=== PATIENT | female | born 1995 | race Caucasian/White ===

== ENCOUNTER 2018-09-27 16:03 | Emergency (ER) | payer OTHER, SELFPAY ==
[2018-09-27 16:54] LABS: Basophils % 1.2 % (0-1.3); Hematocrit 41.3 % (36.0-45.0); Lymphocytes % 24.4 % (15.3-44.8); MPV 8.5 fL (7.6-11.3); RBC Red Blood Cell Count 4.23 M/uL (3.86-4.86)
[2018-09-27 17:11] LABS: Specific Gravity 1.015 (1.005-1.030)
[2018-09-27 17:13] LABS: Albumin 4.2 g/dL (3.4-5.0); Bilirubin Direct 0.3 mg/dL (0-0.2); Potassium 3.7 mmol/L (3.5-5.1); Protein, Total 8.2 g/dL (6.4-8.2)
[2018-09-27 17:35] LABS: Urine Blood 2+ (NEG); Urine Glucose NEGATIVE (NEG); Urine Protein NEGATIVE (NEG)
--- NOTE | 2018-09-27 18:16 | RAD REPORT ---
EXAM DESCRIPTION: RAD - Abdomen Single View - 09/27/2018 6:07 pm CLINICAL HISTORY: lower abdomen pain Pain COMPARISON: <Comparisons> FINDINGS: The bowel gas pattern is non-obstructive. No evidence of free air or pneumatosis. No suspi cious calcifications. No significant bony findings. IMPRESSION: Negative examination.
--- NOTE | 2018-09-27 19:05 | RAD REPORT ---
EXAM DESCRIPTION: US - Transvaginal Study Probe - 09/27/2018 6:55 pm CLINICAL HISTORY: lower abdomen pain Pelvic pain. COMPARISON: <Comparisons> FINDINGS: The uterus is normal in size, shape and echotexture. The uterus measures 6.3 x 4.1 x 3.6 c m. The endometrial stripe measures 2 mm, normal. Both ovaries are normal in size, shape and echotexture. The right ovary measures 4.1 x 2.9 x 2.1 cm. The left ovary measures 1.8 x 1.7 x 1.4 cm. 3.4 x 2.7 x 1.9 cm right ovarian cyst is present. Normal Doppler blood flow was demonstrated to both ovaries. No significant pelvic ascites. IMPRESSION: 3.4 cm right ovarian cyst is present, likely functional in etiology.
--- NOTE | 2018-09-27 19:09 | EDPHYS ---
Physician Documentation [facility] Name: Fely Monge Age: 23 yrs Sex: Female : 1995 Arrival Date: 09/27/2018 Time: 16:09 Bed 14 Private MD: ED Physician Lexx Loving HPI: 09/27 16:30 This 23 yrs old Female presents to ER via Ambulatory with complaints of cp Abdominal Pain. 16:30 The patient presents with abdominal pain in the lower abdomen. Onset: The cp symptoms/episode began/occurred this morning, awoke patient from sleep. The symptoms do not radiate. Associated signs and symptoms: Pertinent positives: diarrhea, vaginal bleeding and now spotting times 1 and 1/2 weeks. The symptoms are described as crampy. 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 - Social history:: Smoking status: Patient/guardian denies using tobacco. - Ebola Screening: : Patient negative for fever greater than or equal to 101.5 degrees Fahrenheit, and additional compatible Ebola Virus Disease symptoms Patient denies exposure to infectious person Patient denies travel to an Ebola-affected area in the 21 days before illness onset No symptoms or risks identified at this time. ROS: 16:35 Constitutional: Negative for body aches, chills, fever, poor PO intake. cp 16:35 Eyes: Negative for injury, pain, redness, and discharge. cp 16:35 ENT: Negative for drainage from ear(s), ear pain, sore throat, difficulty swallowing, difficulty handling secretions. 16:35 Respiratory: Negative for cough, shortness of breath, wheezing. 16:35 Abdomen/GI: Positive for abdominal pain, diarrhea, of the right lower quadrant and left lower quadrant, Negative for vomiting, constipation, black/tarry stool, rectal bleeding. 16:35 : Positive for vaginal bleeding, Negative for urinary symptoms. 16:35 Skin: Negative for cellulitis, rash. 16:35 Neuro: Negative for altered mental status, dizziness, headache, weakness. 16:35 All other systems are negative. Exam: 16:40 Constitutional: The patient appears in no acute distress, alert, awake, non-toxic, well cp developed, well nourished. 16:40 Head/Face: Normocephalic, atraumatic. cp 16:40 Eyes: Periorbital structures: appear normal, Conjunctiva: normal, no exudate, no injection, Sclera: no appreciated abnormality, Lids and lashes: appear normal, bilaterally. 16:40 ENT: External ear(s): are unremarkable, Nose: is normal, Mouth: Lips: moist, Oral mucosa: pink and intact, moist, Posterior pharynx: is normal, airway is patent, no erythema, no exudate. 16:40 Chest/axilla: Inspection: normal, Palpation: is normal, no crepitus, no tenderness. 16:40 Cardiovascular: Rate: normal, Rhythm: regular, JVD: is not appreciated. 16:40 Respiratory: the patient does not display signs of respiratory distress, Respirations: normal, no use of accessory muscles, no retractions, no splinting, labored breathing, is not present, Breath sounds: are clear throughout, no decreased breath sounds, rhonchi, no stridor, no wheezing. 16:40 Abdomen/GI: Inspection: abdomen appears normal, Bowel sounds: active, all quadrants, Palpation: soft, in all quadrants, mild abdominal tenderness, in the right lower quadrant and left lower quadrant, rebound tenderness, is not appreciated, involuntary guarding, is not appreciated. 16:40 Back: pain, is absent, ROM is normal. 19:07 : Pelvic Exam: The exam is refused by the patient/guardian. The risks and cp consequences are understood by the patient. Vital Signs: 16:12 BP 143 / 79; Pulse 94; Resp 16; Temp 98.5; Pulse Ox 100% on R/A; Weight 49.9 kg; Height aj 5 ft. 3 in. (160.02 cm); 19:22 BP 113 / 86; Pulse 80; Resp 16; Pulse Ox 100% on R/A; jb4 16:12 Body Mass Index 19.49 (49.90 kg, 160.02 cm) aj MDM: 16:14 Patient medically screened. cp 17:00 Differential diagnosis: Ectopic , gastritis, gastroesophageal reflux disease, cp non-specific abd pain, Ovarian Torsion, Pelvic Inflammatory Disease, Pyelonephritis, Ureterolithiasis, urinary tract infection. 19:07 Data reviewed: vital signs, nurses notes, lab test result(s), radiologic studies, plain cp films, ultrasound, and as a result, I will discharge patient. 19:07 Counseling: I had a detailed discussion with the patient and/or guardian regarding: the cp historical points, exam findings, and any diagnostic results supporting the discharge/admit diagnosis, lab results, radiology results, to return to the emergency department if symptoms worsen or persist or if there are any questions or concerns that arise at home. Response to treatment: the patient's symptoms have markedly improved after treatment, and as a result, I will discharge patient. 09/27 16:29 Order name: Basic Metabolic Panel; Complete Time: 17:36 cp 09/27 17:38 Interpretation: Normal except: CL 109; GFR 88. 09/27 16:29 Order name: CBC with Diff; Complete Time: 17:36 cp 09/27 17:38 Interpretation: Normal except: WBC 4.0; EOSINOPHIL % 8.3. cp 09/27 16:29 Order name: Creatinine for Radiology; Complete Time: 17:36 cp 09/27 16:29 Order name: Hepatic Function; Complete Time: 17:36 cp 09/27 17:38 Interpretation: Normal except: ALK 42; BILID 0.3; GLOB 4.0. cp 09/27 16:29 Order name: Lipase; Complete Time: 17:36 cp 09/27 17:08 Order name: Urine Dipstick--Ancillary (enter results); Complete Time: 17:36 bd 09/27 16:29 Order name: IV Saline Lock; Complete Time: 16:49 cp 09/27 16:29 Order name: Labs collected and sent; Complete Time: 16:49 cp 09/27 16:29 Order name: Urine Dipstick-Ancillary (obtain specimen); Complete Time: 17:06 cp 09/27 16:29 Order name: Urine Test (obtain specimen); Complete Time: 17:06 cp 09/27 17:10 Order name: Test, Urine; Complete Time: 17:36 EDMS 09/27 17:38 Order name: US Transvaginal Study (Probe); Complete Time: 19:20 cp 09/27 17:49 Order name: XRAY Abdomen 1 View; Complete Time: 18:18 cp 09/27 18:20 Interpretation: Report reviewed. cp Administered Medications: No medications were administered Disposition: 09/27/18 19:08 Discharged to Home. Impression: Lower abdominal pain, unspecified, Unspecified ovarian cysts. - Condition is Stable. - Discharge Instructions: Abdominal Pain, Adult, Ovarian Cyst. - Prescriptions for Ibuprofen 800 mg Oral Tablet - take 0.5 tablet by ORAL route every 8 hours As needed take with food; 30 tablet. - Medication Reconciliation Form, Thank You Letter, Antibiotic Education, Prescription Opioid Use form. - Follow up: Private Physician; When: 1 week; Reason: Recheck today's complaints. - Problem is new. - Symptoms have improved. Addendum: 09/29/2018 19:13 Co-signature as Attending Physician, Lexx Loving MD. r n Signatures: Dispatcher [employer] [facility] Candelaria Geronimo RN RN Lexx Pepe MD MD rn Page, Corey, PA PA cp Bryson, James RN RN jb4 Corrections: (The following items were deleted from the chart) 09/27 17:19 17:10 Test, Urine ordered. [facility] 19:23 19:08 09/27/2018 19:08 Discharged to Home. Impression: Lower abdominal pain, jb4 unspecified; Unspecified ovarian cysts. Condition is Stable. Forms are Medication Reconciliation Form, Thank You Letter, Antibiotic Education, Prescription Opioid Use. Follow up: Private Physician; When: 1 week; Reason: Recheck today's complaints. Problem is new. Symptoms have improved. cp
--- NOTE | 2018-09-27 19:09 | ER ---
Nurse's Notes [facility] Name: Fely Monge Age: 23 yrs Sex: Female : 1995 Arrival Date: 09/27/2018 Time: 16:09 Bed 14 Private MD: Diagnosis: Lower abdominal pain, unspecified;Unspecified ovarian cysts Presentation: 09/27 16:11 Presenting complaint: Patient states: Lower abdominal cramping that started this AM and aj has not improved. Denies burning with urination. Transition of care: patient was not received from another setting of care. Onset of symptoms was September 27, 2018. Risk Assessment: Do you want to hurt yourself or someone else? Patient reports no desire to harm self or others. Initial Sepsis Screen: Does the patient meet any 2 criteria? No. Patient's initial sepsis screen is negative. Does the patient have a suspected source of infection? No. Patient's initial sepsis screen is negative. Care prior to arrival: None. 16:11 Method Of Arrival: Ambulatory aj 16:11 Acuity: SHEFALI 3 aj Triage Assessment: 16:12 General: Appears in no apparent distress. comfortable, Behavior is calm, cooperative, aj appropriate for age. Pain: Complains of pain in suprapubic area, right inguinal area and left inguinal area. Neuro: Level of Consciousness is awake, alert, obeys commands, Oriented to person, place, time, situation, Appropriate for age. Respiratory: Airway is patent Trachea midline Respiratory effort is even, unlabored, Respiratory pattern is regular, symmetrical. GI: Reports lower abdominal pain. : Reports cramping, lower quadrant(s). Derm: Skin is intact, is healthy with good turgor, Skin is pink, warm \T\ dry. normal. 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 - Social history:: Smoking status: Patient/guardian denies using tobacco. - Ebola Screening: : Patient negative for fever greater than or equal to 101.5 degrees Fahrenheit, and additional compatible Ebola Virus Disease symptoms Patient denies exposure to infectious person Patient denies travel to an Ebola-affected area in the 21 days before illness onset No symptoms or risks identified at this time. Screenin:57 Abuse screen: Denies threats or abuse. Denies injuries from another. Nutritional sg screening: No deficits noted. Tuberculosis screening: No symptoms or risk factors identified. Never had TB. Fall Risk None identified. Assessment: 16:30 General: Appears in no apparent distress. slender, well groomed, well developed, well sg nourished, Behavior is calm, cooperative, appropriate for age. Pain: Complains of pain in suprapubic area Quality of pain is described as crampy. Neuro: Level of Consciousness is awake, alert, obeys commands. Cardiovascular: Capillary refill is brisk in bilateral fingers Patient's skin is warm and dry. Chest pain is denied. Respiratory: Airway is patent Respiratory effort is even, unlabored, Respiratory pattern is regular, symmetrical. GI: Abdomen is flat, non-distended, Bowel sounds present X 4 quads. Abd is soft and non tender X 4 quads. : No signs and/or symptoms were reported regarding the genitourinary system. EENT: No signs and/or symptoms were reported regarding the EENT system. Derm: Skin is pink, warm \T\ dry. Musculoskeletal: No signs and/or symptoms reported regarding the musculoskeletal system. 19:21 Reassessment: Patient appears in no apparent distress at this time. Patient and/or jb4 family updated on plan of care and expected duration. Pain level reassessed. Patient is alert, oriented x 3, equal unlabored respirations, skin warm/dry/pink. PT discharged home with mother, ambulated out with steady gait, verbalized understanding of d/c and follow up instructions. Vital Signs: 16:12 BP 143 / 79; Pulse 94; Resp 16; Temp 98.5; Pulse Ox 100% on R/A; Weight 49.9 kg; Height aj 5 ft. 3 in. (160.02 cm); 19:22 BP 113 / 86; Pulse 80; Resp 16; Pulse Ox 100% on R/A; jb4 16:12 Body Mass Index 19.49 (49.90 kg, 160.02 cm) ED Course: 16:09 Patient arrived in ED. mr 16:12 Triage completed. aj 16:12 Arm band placed on right wrist. Patient placed in an exam room. aj 16:13 Maxi Roman PA is PHCP. cp 16:14 Lexx Loving MD is Attending Physician. cp 16:26 Maynor Crystal, RN is Primary Nurse. sg 16:40 Initial lab(s) drawn, by me, sent to lab. Inserted saline lock: 22 gauge in right sg antecubital area, using aseptic technique. Blood collected. 18:08 XRAY Abdomen 1 View In Process Unspecified. EDMS 18:54 US Transvaginal Study (Probe) In Process Unspecified. EDMS 19:02 Primary Nurse role handed off by Maynor Crystal RN jb4 19:02 Marquis Guardado, RN is Primary Nurse. jb4 19:22 Patient has correct armband on for positive identification. Bed in low position. Call jb4 light in reach. Side rails up X 1. Pulse ox on. NIBP on. 19:22 No provider procedures requiring assistance completed. IV discontinued, intact, jb4 bleeding controlled, No redness/swelling at site. Administered Medications: No medications were administered Outcome: 19:08 Discharge ordered by MD. cp 19:22 Discharged to home ambulatory, with family. jb4 19:22 Condition: stable 19:22 Discharge instructions given to patient, family, Instructed on discharge instructions, follow up and referral plans. medication usage, Demonstrated understanding of instructions, follow-up care, medications, Prescriptions given X 1. 19:23 Patient left the ED. jb4 Signatures: Dispatcher [employer] [facility] Maynor Crystal, Candelaria Sosa RN, RN RN aj Rivera, Mary mr Page, Corey, PA PA cp Marquis Guardado, RN MARIELLA jbOctaviano
== END 2018-09-27 19:23 | disposition home or self-care (01) ==
LOC: ER 16:03
DX: N83.201 Unspecified ovarian cyst, right side (principal)
CPT/HCPCS: 36415; 74018; 76830; 80048; 80076; 81003; 81025; 83690; 85025; 99284

== ENCOUNTER 2020-04-09 18:00 | Emergency (ER) | payer SELFPAY ==
--- OUTSIDE RECORDS SUMMARY | 2020-04-09 18:02 | XMS REPORT | Continuity of Care Document ---
:1995 Author Organization [facility] t Address [address] [place] [address] Care Team Providers Name Role Phone Nemesio TATE Attending Clinician Doctor Unassigned, Name Attending Clinician Unavailable Lab, Fam Pob I Attending Clinician Unavailable Problems This patient has no known problems. Allergies, Adverse Reactions, Alerts This patient has no known allergies or adverse reactions. Medications This patient has no known medications. Procedures This patient has no known procedures. Encounters Start End Encounter Admission Attending Care Care Encounter Source Date/Time Date/Time Type Type Clinicians Facility Department ID 2019-12-30 2019-12-30 Victoria Herr [facility] [id number] 12:38:00 15:12:00 Anne Gan [id number] [place] [id number] [place] [id number] 2019-12-30 2019-12-30 Orders Doctor SHARMA [id number] 00:00:00 00:00:00 Only UnassTATIANNA teresa [id number] [place] [facility] [id number] 2019-09-17 2019-09-17 Laboratory Lab, [facility] [id number] 08:25:13 08:45:13 Only Fam Pob I [facility] [id number] [place] [id number] [place] [id number] [address] [address] 2019-09-17 2019-09-17 Letter Doctor ZACHARY [id number] 00:00:00 00:00:00 (Out) Unassigned, TATIANNA [id number] [place] [facility] [id number] Results This patient has no known results.
[2020-04-09 18:58] LABS: Urine Blood TRACE (NEG); Urine Glucose NEGATIVE (NEG); Urine Protein NEGATIVE (NEG)
[2020-04-09 20:22] LABS: Absolute Lymphocytes (CBC) 1.1 K/uL (0.7-4.9); Basophils % 0.3 % (0-1.3); Lymphocytes % 13.8 % (15.3-44.8); MPV 8.9 fL (7.6-11.3); RBC Red Blood Cell Count 4.25 M/uL (3.86-4.86)
[2020-04-09 20:36] LABS: ALT/SGPT 20 U/L (12-78); AST/SGOT 16 U/L (15-37); Albumin 4.7 g/dL (3.4-5.0); Alkaline Phosphatase 52 U/L (45-117); BUN Blood Urea Nitrogen 7 mg/dL (7-18); Bicarbonate 26 mmol/L (21-32); Bilirubin Direct 0.3 mg/dL (0-0.2); Bilirubin Total 1.2 mg/dL (0.2-1.0); Glucose Level 109 mg/dL (74-106); Lipase 104 U/L (73-393); Potassium 3.4 mmol/L (3.5-5.1); Protein, Total 8.7 g/dL (6.4-8.2); Sodium Level 138 mmol/L (136-145)
[2020-04-09] MEDS ORDERED: NA CHLORIDE 0.9% 1,000 ML ONE (20:43)
[2020-04-09] MEDS ORDERED: MORPHINE 2 MG/ML SYR ONE (20:43)
[2020-04-09] MEDS ORDERED: ONDANSETRON 4 MG/2 ML VIAL ONE (20:43)
[2020-04-09] MEDS ORDERED: FAMOTIDINE 20 MG/2 ML VIAL IV ONE (20:44)
--- NOTE | 2020-04-09 21:09 | RAD REPORT ---
EXAM DESCRIPTION: CT - Abdomen Pelvis W Contrast - 04/09/2020 8:44 pm CLINICAL HISTORY: Abdominal pain COMPARISON: none. TECHNIQUE: Computed axial tomography of the abdomen pelvis was obtained. 100 cc Isovue-300 was admin istered intravenously. Oral contrast was not requested which limits evaluation of bowel and appendix. All CT scans are performed using dose optimization technique as appropriate and may include automated exposure control or mA/KV adjustment according to patient size. FINDINGS: The liver, spleen, pancreas, adrenal and left kidney appear unremarkable. Small right renal cyst. Mild cortical thinning right kidney may be secondary to previous inflammation There is no evidence of diverticulitis. No adnexal mass. Uterus is retroverted. Minimal free fluid in the pelvis probably physiologic Thickening of the wall of the distal stomach IMPRESSION: Thickening of the wall of the distal stomach may be secondary to incomplete distention o r pathology such as gastritis
--- NOTE | 2020-04-09 21:13 | RAD REPORT ---
EXAM DESCRIPTION: US - Abdomen Exam Limited - 04/09/2020 8:35 pm CLINICAL HISTORY: Abdominal pain. COMPARISON: None. FINDINGS: The gallbladder wall is not thickened. A gallstone is not seen. Biliary tree is normal caliber IMPRESSION: Unremarkable exam
--- NOTE | 2020-04-09 21:36 | ER ---
Nurse's Notes [facility] Name: Fely Monge Age: 24 yrs Sex: Female : 1995 Arrival Date: 04/09/2020 Time: 18:02 Bed 8 Private MD: Diagnosis: Abdominal tenderness;Gastritis, unspecified Presentation: 04/09 18:21 Chief complaint: Patient states: Entire abd pain with slight diarrhea since last night. ll1 Couldn't sleep well due to pain, no fever. + decreased appetite. Coronavirus screen: Client denies travel out of the [place] in the last 14 days. diarrhea, fatigue, headache, Client presents with at least one sign or symptom that may indicate coronavirus-19. Standard/surgical mask placed on the client. Ebola Screen: Patient denies travel to an Ebola-affected area in the 21 days before illness onset. Initial Sepsis Screen: Does the patient meet any 2 criteria? No. Patient's initial sepsis screen is negative. Does the patient have a suspected source of infection? Yes: Acute abdominal pain. Risk Assessment: Do you want to hurt yourself or someone else? Patient reports no desire to harm self or others. Onset of symptoms was April 08, 2020. 18:21 Method Of Arrival: Ambulatory 1 18:21 Acuity: SHEFALI 3 ll1 Triage Assessment: 20:00 General: Appears in no apparent distress. Behavior is calm, cooperative, appropriate wh for age. 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 - Social history:: Smoking status: Patient denies any tobacco usage or history of. Screenin:00 Abuse screen: Denies threats or abuse. Denies injuries from another. Nutritional wh screening: No deficits noted. Tuberculosis screening: No symptoms or risk factors identified. Fall Risk None identified. Assessment: 20:00 General: Appears in no apparent distress. Behavior is calm, cooperative, appropriate wh for age. Pain: Complains of pain in epigastric area Pain does not radiate. Pain: Quality of pain is described as burning. Neuro: Level of Consciousness is awake, alert, obeys commands, Oriented to person, place, time, situation, Appropriate for age. Cardiovascular: Heart tones S1 S2. Respiratory: Airway is patent Respiratory effort is even, unlabored, Respiratory pattern is regular, symmetrical, Breath sounds are clear bilaterally. GI: Abdomen is flat, non-distended, Bowel sounds present X 4 quads. Abd is soft and non tender X 4 quads. Reports upper abdominal pain. : No signs and/or symptoms were reported regarding the genitourinary system. EENT: No signs and/or symptoms were reported regarding the EENT system. Derm: Skin is intact, is healthy with good turgor, Skin is pink, warm \T\ dry. normal. Musculoskeletal: Circulation, motion, and sensation intact. 20:54 Reassessment: PATIENT REFUSED THE MORPHINE AND ZOFRAN AT THIS MOMENT. rv 21:30 Reassessment: Patient appears in no apparent distress at this time. No changes from previously documented assessment. Patient and/or family updated on plan of care and expected duration. Pain level reassessed. Patient is alert, oriented x 3, equal unlabored respirations, skin warm/dry/pink. Vital Signs: 18:21 BP 138 / 89; Pulse 89; Resp 17; Temp 98.4; Pulse Ox 100% ; Weight 48.99 kg; Height 5 ll1 ft. 4 in. (162.56 cm); Pain 7/10; 21:30 BP 124 / 85; Pulse 84; Resp 18; Pulse Ox 99% on R/A; wh 18:21 Body Mass Index 18.54 (48.99 kg, 162.56 cm) ll1 ED Course: 18:02 Patient arrived in ED. mr 18:24 Triage completed. ll1 18:24 Arm band placed on. ll1 19:54 Maxi Cortes MD is Attending Physician. reddy 20:00 Patient has correct armband on for positive identification. Placed in gown. Bed in low wh position. Call light in reach. Side rails up X 1. Pulse ox on. NIBP on. 20:01 Sander Blackmon, RN is Primary Nurse. wh 20:10 No provider procedures requiring assistance completed. Inserted saline lock: 20 gauge wh in right antecubital area, using aseptic technique. Blood collected. 20:35 US Abdomen Limited In Process Unspecified. EDMS 20:44 CT Abd/Pelvis - IV Contrast Only In Process Unspecified. EDRI 21:34 Vladislav Szymanski MD is Referral Physician. [facility] 21:45 IV discontinued, intact, bleeding controlled, No redness/swelling at site. Administered Medications: 20:53 Drug: NS 0.9% 1000 ml Route: IV; Rate: 1 bolus; Site: right antecubital; rv 21:43 Follow up: Response: No adverse reaction; IV Status: Completed infusion 20:54 Drug: Pepcid 20 mg Route: IVP; Site: right antecubital; rv 21:43 Follow up: Response: No adverse reaction 21:43 Not Given (Patient Refused): morphine 2 mg IVP once; (PAIN>8) RASS on ADMN: Combtv4, Very Agttd3, Agttd2, Rstlss1, AlertClm0, Drwsy-1, LtSdtn-2, ModSdtn-3, DpSdtn-4, UnArsble-5 x2 21:43 Not Given (Patient Refused): Zofran (Ondansetron) 4 mg IVP once; over 2 minutes 21:43 Drug: ProTONIX 40 mg Route: IVP; Site: right antecubital; 21:47 Follow up: Response: No adverse reaction Outcome: 21:35 Discharge ordered by . [facility] 21:40 Discharged to home ambulatory. 21:40 Condition: stable 21:40 Discharge instructions given to patient, Instructed on discharge instructions, follow up and referral plans. medication usage, POC Demonstrated understanding of instructions, follow-up care, medications, POC Prescriptions given X 2. 21:48 Patient left the ED. Signatures: Dispatcher [employer] EDMS Maxi Cortes MD MD cha Rivera, Mary Sander Blackmon, MARIELLA WOLFF Leonardo Bach RN RN Jo Ann Gagnon RN RN ll1
--- NOTE | 2020-04-09 21:36 | EDPHYS ---
Physician Documentation [facility] Name: Fely Monge Age: 24 yrs Sex: Female : 1995 Arrival Date: 04/09/2020 Time: 18:02 Bed 8 Private MD: ED Physician Maxi Cortes HPI: 04/09 20:16 This 24 yrs old Female presents to ER via Ambulatory with complaints of reddy Abdominal Pain, Diarrhea. 20:16 The patient presents to the emergency department with nausea, that is moderate. Onset: reddy The symptoms/episode began/occurred yesterday. Possible causes: unknown. The symptoms are aggravated by movement, pressure, food , The symptoms are alleviated by nothing. remaining still. Associated signs and symptoms: The patient has no apparent associated signs or symptoms. Severity of symptoms: At their worst the symptoms were mild in the emergency department the symptoms are worse markedly. The patient has not experienced similar symptoms in the past. 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 - Social history:: Smoking status: Patient denies any tobacco usage or history of. ROS: 20:19 Constitutional: Negative for fever, chills, and weight loss, Eyes: Negative for injury, reddy pain, redness, and discharge, ENT: Negative for injury, pain, and discharge, Neck: Negative for injury, pain, and swelling, Cardiovascular: Negative for chest pain, palpitations, and edema, Respiratory: Negative for shortness of breath, cough, wheezing, and pleuritic chest pain, Back: Negative for injury and pain, : Negative for injury, bleeding, discharge, and swelling, MS/Extremity: Negative for injury and deformity, Skin: Negative for injury, rash, and discoloration, Neuro: Negative for headache, weakness, numbness, tingling, and seizure, Psych: Negative for depression, anxiety, suicide ideation, homicidal ideation, and hallucinations, Allergy/Immunology: Negative for hives, rash, and allergies, Endocrine: Negative for neck swelling, polydipsia, polyuria, polyphagia, and marked weight changes, Hematologic/Lymphatic: Negative for swollen nodes, abnormal bleeding, and unusual bruising. 20:19 Abdomen/GI: Positive for abdominal pain, nausea, abdominal cramps, of the epigastric area, right upper quadrant, left upper quadrant and left lower quadrant. Exam: 20:19 Constitutional: This is a well developed, well nourished patient who is awake, alert, reddy and in no acute distress. Head/Face: Normocephalic, atraumatic. Eyes: Pupils equal round and reactive to light, extra-ocular motions intact. Lids and lashes normal. Conjunctiva and sclera are non-icteric and not injected. Cornea within normal limits. Periorbital areas with no swelling, redness, or edema. ENT: Nares patent. No nasal discharge, no septal abnormalities noted. Tympanic membranes are normal and external auditory canals are clear. Oropharynx with no redness, swelling, or masses, exudates, or evidence of obstruction, uvula midline. Mucous membranes moist. Neck: Trachea midline, no thyromegaly or masses palpated, and no cervical lymphadenopathy. Supple, full range of motion without nuchal rigidity, or vertebral point tenderness. No Meningismus. Chest/axilla: Normal chest wall appearance and motion. Nontender with no deformity. No lesions are appreciated. Cardiovascular: Regular rate and rhythm with a normal S1 and S2. No gallops, murmurs, or rubs. Normal PMI, no JVD. No pulse deficits. Respiratory: Lungs have equal breath sounds bilaterally, clear to auscultation and percussion. No rales, rhonchi or wheezes noted. No increased work of breathing, no retractions or nasal flaring. Back: No spinal tenderness. No costovertebral tenderness. Full range of motion. Skin: Warm, dry with normal turgor. Normal color with no rashes, no lesions, and no evidence of cellulitis. MS/ Extremity: Pulses equal, no cyanosis. Neurovascular intact. Full, normal range of motion. Neuro: Awake and alert, GCS 15, oriented to person, place, time, and situation. Cranial nerves II-XII grossly intact. Motor strength 5/5 in all extremities. Sensory grossly intact. Cerebellar exam normal. Normal gait. Psych: Awake, alert, with orientation to person, place and time. Behavior, mood, and affect are within normal limits. 20:19 Abdomen/GI: Inspection: abdomen appears normal, Bowel sounds: normal, Palpation: mild abdominal tenderness, moderate abdominal tenderness, in the epigastric area, right upper quadrant and left upper quadrant, Liver: no appreciated palpable abnormalities, Hernia: not appreciated. Vital Signs: 18:21 BP 138 / 89; Pulse 89; Resp 17; Temp 98.4; Pulse Ox 100% ; Weight 48.99 kg; Height 5 ll1 ft. 4 in. (162.56 cm); Pain 7/10; 21:30 BP 124 / 85; Pulse 84; Resp 18; Pulse Ox 99% on R/A; wh 18:21 Body Mass Index 18.54 (48.99 kg, 162.56 cm) ll1 MDM: 19:54 Patient medically screened. [facility] 20:20 Differential diagnosis: Nonspecific abd pain, gastritis, cholecystitis, pancreatitis, reddy appendicitis, viral gastroenteritis, gastroenteritis. Data reviewed: vital signs, nurses notes, lab test result(s), radiologic studies, CT scan, ultrasound. Data interpreted: shelter monitor: rate is 89 beats/min, rhythm is regular, Pulse oximetry: on room air is 100 %. Test interpretation: by ED physician or midlevel provider:. Counseling: I had a detailed discussion with the patient and/or guardian regarding: the historical points, exam findings, and any diagnostic results supporting the discharge/admit diagnosis, lab results, radiology results. 04/09 18:52 Order name: Urine Dipstick--Ancillary (enter results); Complete Time: 20:15 04/09 18:52 Order name: Urine --Ancillary (enter results); Complete Time: 20:15 04/09 20:01 Order name: Basic Metabolic Panel; Complete Time: 20:55 04/09 20:01 Order name: CBC with Diff; Complete Time: 20:55 04/09 20:01 Order name: Hepatic Function; Complete Time: 20:55 04/09 20:01 Order name: Lipase; Complete Time: 20:55 04/09 20:01 Order name: IV Saline Lock; Complete Time: 20:01 04/09 20:16 Order name: US Abdomen Limited [facility] 04/09 20:16 Order name: CT Abd/Pelvis - IV Contrast Only [facility] 04/09 20:01 Order name: Labs collected and sent; Complete Time: 20:01 Administered Medications: 20:53 Drug: NS 0.9% 1000 ml Route: IV; Rate: 1 bolus; Site: right antecubital; rv 21:43 Follow up: Response: No adverse reaction; IV Status: Completed infusion 20:54 Drug: Pepcid 20 mg Route: IVP; Site: right antecubital; rv 21:43 Follow up: Response: No adverse reaction 21:43 Not Given (Patient Refused): morphine 2 mg IVP once; (PAIN>8) RASS on ADMN: Combtv4, wh Very Agttd3, Agttd2, Rstlss1, AlertClm0, Drwsy-1, LtSdtn-2, ModSdtn-3, DpSdtn-4, UnArsble-5 x2 21:43 Not Given (Patient Refused): Zofran (Ondansetron) 4 mg IVP once; over 2 minutes 21:43 Drug: ProTONIX 40 mg Route: IVP; Site: right antecubital; 21:47 Follow up: Response: No adverse reaction Disposition: 04/09/20 21:35 Discharged to Home. Impression: Abdominal tenderness, Gastritis, unspecified. - Condition is Stable. - Discharge Instructions: Abdominal Pain, Adult, Gastritis, Adult, Gastritis, Adult, Faze-ol-Iadd, Abdominal Pain, Adult, Qfyu-di-Ihfj. - Prescriptions for Bentyl 20 mg Oral Tablet - take 1 tablet by ORAL route every 6 hours As needed; 20 tablet. Protonix 40 mg Oral Tablet - take 1 tablet by ORAL route once daily; 30 tablet. - Medication Reconciliation Form, Thank You Letter, Antibiotic Education, Prescription Opioid Use, Work release form form. - Follow up: Private Physician; When: 2 - 3 days; Reason: Recheck today's complaints, Continuance of care, Re-evaluation by your physician. Follow up: Vladislav Szymanski MD; When: 2 - 3 days; Reason: Recheck today's complaints, Re-evaluation by your physician. - Problem is new. - Symptoms have improved. Signatures: Dispatcher [employer] Maxi Vale MD MD cha Habalo, Winsy, RN RN Leonardo Bach RN RN Jo Ann Gagnon RN RN ll1 Corrections: (The following items were deleted from the chart) 21:48 21:35 04/09/2020 21:35 Discharged to Home. Impression: Abdominal tenderness; Gastritis, wh unspecified. Condition is Stable. Forms are Medication Reconciliation Form, Thank You Letter, Antibiotic Education, Prescription Opioid Use. Follow up: Private Physician; When: 2 - 3 days; Reason: Recheck today's complaints, Continuance of care, Re-evaluation by your physician. Follow up: Vladislav Szymanski; When: 2 - 3 days; Reason: Recheck today's complaints, Re-evaluation by your physician. Problem is new. Symptoms have improved. reddy
[2020-04-09 21:53] VITALS: BP 138/89; TEMP 98.4; O2SAT 100
[2020-04-09] MEDS ORDERED: PANTOPRAZOLE 40 MG INJ ONE (21:53)
== END 2020-04-09 21:48 | disposition home or self-care (01) ==
LOC: ER 18:00
DX: K29.70 Gastritis, unspecified, without bleeding (principal)
CPT/HCPCS: 36415; 74177; 76705; 80048; 80076; 81003; 81025; 83690; 85025; 96361; 96374; 96375; 99284; C9113; J2270; J2405; J7030; Q9967

== ENCOUNTER 2020-09-15 06:26 | Emergency (ER) | payer SELFPAY ==
--- OUTSIDE RECORDS SUMMARY | 2020-09-15 06:28 | XMS REPORT | Continuity of Care Document ---
:1995 Author Organization [facility] t Address [address] [place] [address] Care Team Providers Name Role Phone Nemesio [...] Facility Department ID 2019-12-30 2019-12-30 Victoria Herr [facility] [place] [id number] 12:38:00 15:12:00 Anne Gan [id number] [place] [id number] [place] [phone] [id number] 2019-12-30 2019-12-30 Orders Doctor SHARMA [id number] 00:00:00 00:00:00 Only UnassignedTATIANNA [id number] [place] [facility] [id number] [id number] 2019-09-17 2019-09-17 Laboratory Lab, [facility] [id number] 08:25:13 08:45:13 Only Fam [facility] [id number] [place] [id number] Prof[place] [phone] [address]al [address] 2019-09-17 2019-09-17 Letter Doctor ZACHARY [id number] 00:00:00 00:00:00 (Out) Unassigned, TATIANNA [id number] [place] [facility] [phone] [id number] Results This patient has no known results.
[2020-09-15 07:11] LABS: Absolute Lymphocytes (CBC) 2.1 K/uL (0.7-4.9); Basophils % 0.3 % (0-1.3); Hematocrit 41.9 % (36.0-45.0); MPV 8.3 fL (7.6-11.3); RBC Red Blood Cell Count 4.42 M/uL (3.86-4.86)
[2020-09-15 07:13] LABS: Urine Blood Trace-intact (Negative); Urine Glucose Negative (Negative); Urine Protein Negative (Negative); Urine pH 6.5 (5.0-7.0)
[2020-09-15 07:22] LABS: ALT/SGPT 29 U/L (12-78); AST/SGOT 21 U/L (15-37); Albumin 4.8 g/dL (3.4-5.0); Alkaline Phosphatase 45 U/L (45-117); BUN Blood Urea Nitrogen 10 mg/dL (7-18); Bicarbonate 25 mmol/L (21-32); Bilirubin Direct 0.3 mg/dL (0-0.2); Bilirubin Total 1.2 mg/dL (0.2-1.0); Glucose Level 85 mg/dL (74-106); Lipase 108 U/L (73-393); Potassium 3.6 mmol/L (3.5-5.1); Protein, Total 8.9 g/dL (6.4-8.2); Sodium Level 136 mmol/L (136-145)
[2020-09-15] MEDS ORDERED: NA CHLORIDE 0.9% 1,000 ML ONE (07:43)
--- NOTE | 2020-09-15 08:25 | RAD REPORT ---
EXAM DESCRIPTION: CTAbdomen Pelvis W Contrast - 09/15/2020 7:37 am CLINICAL HISTORY: Abdominal pain. lower abd pain, vomiting, diarrhea;Abd pain COMPARISON: Abdomen Pelvis W Contrast dated 04/09/2020 TECHNIQUE: Biphasic CT imaging of the abdomen and pelvis was performed with 100 ml non-ionic IV cont rast. All CT scans are performed using dose optimization technique as appropriate and may include automated exposure control or mA/KV adjustment according to patient size. FINDINGS: The lung bases are clear. The liver, spleen, pancreas, adrenal glands and kidneys are within normal limits. No bowel obstruction, free air, free fluid or abscess. The appendix is not identified as a discrete structure, however, no secondary findings of appendicitis are identified. No evidence of significan t lymphadenopathy. No suspicious bony findings. IMPRESSION: No acute intra-abdominal or pelvic finding.
[2020-09-15] MEDS ORDERED: ACETAMINOPHEN 325 MG TABLET ONE (08:31)
[2020-09-15] MEDS ORDERED: MORPHINE 4 MG/ML SYR ONE (08:32)
[2020-09-15] MEDS ORDERED: ONDANSETRON 4 MG/2 ML VIAL ONE (08:32)
--- NOTE | 2020-09-15 11:14 | RAD REPORT ---
EXAM DESCRIPTION: US - Transvaginal Study Probe - 09/15/2020 9:18 am CLINICAL HISTORY: lower abd pain, rule out ovarian torsion Pelvic pain. COMPARISON: Transvaginal Study Probe dated 09/27/2018; Abdomen Pelvis W Contrast dated 09/15/2020 FINDINGS: The uterus is normal in size, shape and echotexture. The uterus measures 5.7 x 3.0 cm. The endometrial stripe measures 2 mm, normal. Both ovaries are normal in size, shape and echotexture. The right ovary measures 1.7 x 1.3 cm. The left ovary measures 2.3 x 1.7 cm. No ovarian or parovarian lesions. No adnexal masses. Normal Doppler blood flow was demonstrated to both ovaries. No significant pelvic ascites. IMPRESSION: Unremarkable study.
--- NOTE | 2020-09-15 11:22 | ER ---
Nurse's Notes [facility] Name: Fely Monge Age: 25 yrs Sex: Female : 1995 Arrival Date: 09/15/2020 Time: 06:28 Bed 16 Private MD: Diagnosis: Abdominal pain, unspecified;Nausea with vomiting, unspecified Presentation: 09/15 06:38 Chief complaint: Patient states: lower abdominal pain that radiates into back that em started last night at 11 PM, reports 3 episodes of diarrhea and vomited 1 once, denies fever or burning with urination. Coronavirus screen: Client denies travel out of the [place] in the last 14 days. Ebola Screen: Patient negative for fever greater than or equal to 101.5 degrees Fahrenheit, and additional compatible Ebola Virus Disease symptoms Patient denies exposure to infectious person. Patient denies travel to an Ebola-affected area in the 21 days before illness onset. No symptoms or risks identified at this time. Initial Sepsis Screen: Does the patient meet any 2 criteria? HR > 90 bpm. No. Patient's initial sepsis screen is negative. Does the patient have a suspected source of infection? No. Patient's initial sepsis screen is negative. Risk Assessment: Do you want to hurt yourself or someone else? Patient reports no desire to harm self or others. Onset of symptoms was September 15, 2020. 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 - Social history:: Smoking status: Patient denies any tobacco usage or history of. - Family history:: not pertinent. - Hospitalizations: : No recent hospitalization is reported. Screenin:00 Abuse screen: Denies threats or abuse. Nutritional screening: No deficits noted. jb4 Tuberculosis screening: No symptoms or risk factors identified. Fall Risk None identified. Assessment: 07:00 General: Appears in no apparent distress. uncomfortable, Behavior is calm, cooperative, jb4 appropriate for age. Pain: Complains of pain in abdomen Pain radiates to low back area Pain currently is 9 out of 10 on a pain scale. Neuro: Level of Consciousness is awake, alert, obeys commands, Oriented to person, place, time, situation. Cardiovascular: Patient's skin is warm and dry. Respiratory: Airway is patent Respiratory effort is even, unlabored, Respiratory pattern is regular, symmetrical. GI: Abdomen is flat, non-distended, Reports lower abdominal pain, diarrhea, nausea, vomiting. : No signs and/or symptoms were reported regarding the genitourinary system. EENT: No signs and/or symptoms were reported regarding the EENT system. Derm: Skin is intact, Skin is pink, warm \T\ dry. Musculoskeletal: Circulation, motion, and sensation intact. Range of motion: intact in all extremities. 08:32 Reassessment: MD Loving at bedside to discuss results and POC. tr6 Vital Signs: 06:38 BP 141 / 85; Pulse 112; Resp 20; Temp 98.1; Pulse Ox 98% on R/A; Weight 49.44 kg; em Height 5 ft. 3 in. (160.02 cm); Pain 9/10; 08:20 BP 139 / 82; Pulse 112; Resp 18; Temp 99(O); Pulse Ox 100% on R/A; tr6 06:38 Body Mass Index 19.31 (49.44 kg, 160.02 cm) em ED Course: 06:28 Patient arrived in ED. es 06:40 Triage completed. em 06:40 Arm band placed on. em 06:42 Javi Lazo MD is Attending Physician. [facility] 07:00 Patient has correct armband on for positive identification. Bed in low position. Call jb4 light in reach. Side rails up X 1. Pulse ox on. NIBP on. 07:00 Initial lab(s) drawn, by ok, sent to lab. Inserted saline lock: 20 gauge in left jb4 antecubital area, using aseptic technique. Blood collected. 07:10 Urine collected: clean catch specimen, clear. jb4 07:13 Attending Physician role handed off by Javi Lazo MD rn 07:13 Lexx Loving MD is Attending Physician. rn 07:27 Sue Adams, MARIELLA is Primary Nurse. tr6 07:37 CT Abd/Pelvis - IV Contrast Only In Process Unspecified. EDMS 09:18 Transvaginal Study Probe In Process Unspecified. EDMS 11:08 Awaiting radiology results. tr6 11:51 No provider procedures requiring assistance completed. IV discontinued, intact, ss bleeding controlled, No redness/swelling at site. Pressure dressing applied. Administered Medications: 07:27 Drug: NS 0.9% 1000 ml Route: IV; Rate: 1000 ml; Site: left antecubital; tr6 08:30 Follow up: IV Status: Completed infusion; IV Intake: 1000ml tr6 08:19 Drug: Zofran (Ondansetron) 4 mg Route: IVP; Site: left antecubital; tr6 08:30 Follow up: Response: Nausea is decreased tr6 08:20 Drug: Tylenol 650 mg Route: PO; tr6 08:30 Follow up: Response: No adverse reaction tr6 08:20 Drug: morphine 2 mg {Note: pt only tolerated half dose.} Route: IVP; Site: left tr6 antecubital; 08:30 Follow up: Response: Pain is decreased tr6 Intake: 08:30 IV: 1000ml; Total: 1000ml. tr6 Outcome: 11:22 Discharge ordered by . rn 11:51 Discharged to home ambulatory. ss 11:51 Condition: good 11:51 Discharge instructions given to patient, Instructed on discharge instructions, follow up and referral plans. medication usage, Demonstrated understanding of instructions, follow-up care, medications, Prescriptions given X 1. 11:53 Patient left the ED. ss Signatures: Dispatcher [employer] Renetta Peters Edgar, RN RN em Nieto, Roman, MD MD rn Smirch, Shelby, RN RN Marquis Guardado RN RN jb4 Javi Lazo MD MD 7 Sue Adams RN RN tr6
--- NOTE | 2020-09-15 11:23 | EDPHYS ---
Physician Documentation [facility] Name: Fely Monge Age: 25 yrs Sex: Female : 1995 Arrival Date: 09/15/2020 Time: 06:28 Bed 16 Private MD: ED Physician Lexx Loving HPI: 09/15 07:20 This 25 yrs old Female presents to ER via Ambulatory with complaints of rn Abdominal Pain. 07:20 The patient presents with abdominal pain in the lower abdomen. Onset: The rn symptoms/episode began/occurred last night. The symptoms do not radiate. Associated signs and symptoms: Pertinent positives: nausea and vomiting, diarrhea, Pertinent negatives: blood in stools, chest pain, hematuria, shortness of breath, vomiting blood. The symptoms are described as crampy, sharp, stabbing. Modifying factors: The symptoms are alleviated by remaining still, the symptoms are aggravated by movement, touching the area. Severity of pain: At its worst the pain was moderate in the emergency department the pain has improved. The patient has not experienced similar symptoms in the past. 07:22 Reports lower abd pain that began last night, no fever, + nausea/vomiting/diarrhea, no rn urinary symptoms other than slight increase in frequency over night. No trauma. No vaginal discharge or pain.. 07:27 The patient has not recently seen a physician. 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 - Social history:: Smoking status: Patient denies any tobacco usage or history of. - Family history:: not pertinent. - Hospitalizations: : No recent hospitalization is reported. ROS: 07:24 Constitutional: Negative for fever, chills, and weight loss, Eyes: Negative for injury, rn pain, redness, and discharge, Neck: Negative for injury, pain, and swelling, Cardiovascular: Negative for chest pain, palpitations, and edema, Respiratory: Negative for shortness of breath, cough, wheezing, and pleuritic chest pain, Abdomen/GI: + lower abd pain/nausea/vomiting/diarrhea. Back: Negative for injury and pain, : Negative for injury, bleeding, discharge, and swelling, MS/Extremity: Negative for injury and deformity, Skin: Negative for injury, rash, and discoloration, Neuro: Negative for headache, weakness, numbness, tingling, and seizure. 07:27 All other systems are negative. rn Exam: 07:24 Constitutional: This is a well developed, well nourished patient who is awake, alert, rn and in no acute distress. Head/Face: Normocephalic, atraumatic. Eyes: Periorbital areas with no swelling, redness, or edema. Cardiovascular: Tachycardic, regular Respiratory: No increased work of breathing, no retractions or nasal flaring. Abdomen/GI: soft, + RLQ/suprapubic/LLQ/periumbilical tenderness, no rebound, no masses Skin: Warm, dry, no rashes MS/ Extremity: Pulses equal, no cyanosis. Neuro: Awake and alert, GCS 15 Vital Signs: 06:38 BP 141 / 85; Pulse 112; Resp 20; Temp 98.1; Pulse Ox 98% on R/A; Weight 49.44 kg; em Height 5 ft. 3 in. (160.02 cm); Pain 9/10; 08:20 BP 139 / 82; Pulse 112; Resp 18; Temp 99(O); Pulse Ox 100% on R/A; tr6 06:38 Body Mass Index 19.31 (49.44 kg, 160.02 cm) em MDM: 07:13 Patient medically screened. rn 07:27 Differential diagnosis: appendicitis, diverticulitis, Ectopic , Endometriosis, rn non-specific abd pain, Peritonitis, Pyelonephritis, Tubal Ovarian Abcess, Ureterolithiasis, urinary tract infection. 07:57 Data reviewed: vital signs, nurses notes, lab test result(s). rn 07:57 Response to treatment: the patient's symptoms have mildly improved after treatment. rn 08:35 ED course: No definitive etiology of abd pain found in blood or ct abdomen/UA, will add rn ultrasound to rule out ovarian torsion given still having abd tenderness and lower location. . 08:36 Differential diagnosis: Ovarian Torsion. rn 11:21 Counseling: I had a detailed discussion with the patient and/or guardian regarding: the rn historical points, exam findings, and any diagnostic results supporting the discharge/admit diagnosis, lab results, radiology results, the need for outpatient follow up, to return to the emergency department if symptoms worsen or persist or if there are any questions or concerns that arise at home. ED course: NO acute findings on ct abdomen or u/s, will dc home with symptomatic treatment and return precautions.. 09/15 06:45 Order name: Basic Metabolic Panel; Complete Time: 07:33 7 09/15 06:45 Order name: CBC with Diff; Complete Time: 07:13 7 09/15 06:45 Order name: Hepatic Function; Complete Time: 07:33 7 09/15 06:45 Order name: Lipase; Complete Time: 07:33 7 09/15 07:12 Order name: Urine Dipstick-Ancillary; Complete Time: 07:33 EDMS 09/15 07:18 Order name: Urine --Ancillary (enter results); Complete Time: 08:22 09/15 07:20 Order name: CT Abd/Pelvis - IV Contrast Only; Complete Time: 08:26 09/15 07:20 Order name: Flu; Complete Time: 08:22 09/15 08:47 Order name: Transvaginal Study Probe; Complete Time: 11:21 EDMS 09/15 06:45 Order name: IV Saline Lock; Complete Time: 07:01 7 09/15 06:45 Order name: Labs collected and sent; Complete Time: 07:01 7 09/15 06:45 Order name: Urine Dipstick-Ancillary (obtain specimen); Complete Time: 07:07 7 09/15 06:45 Order name: Urine Test (obtain specimen); Complete Time: 07:07 7 Administered Medications: 07:27 Drug: NS 0.9% 1000 ml Route: IV; Rate: 1000 ml; Site: left antecubital; tr6 08:30 Follow up: IV Status: Completed infusion; IV Intake: 1000ml tr6 08:19 Drug: Zofran (Ondansetron) 4 mg Route: IVP; Site: left antecubital; tr6 08:30 Follow up: Response: Nausea is decreased tr6 08:20 Drug: Tylenol 650 mg Route: PO; tr6 08:30 Follow up: Response: No adverse reaction tr6 08:20 Drug: morphine 2 mg {Note: pt only tolerated half dose.} Route: IVP; Site: left tr6 antecubital; 08:30 Follow up: Response: Pain is decreased tr6 Disposition Summary: 09/15/20 11:22 Discharge Ordered Location: Home rn Problem: new rn Symptoms: have improved rn Condition: Stable rn Diagnosis - Abdominal pain, unspecified rn - Nausea with vomiting, unspecified rn Followup: rn - With: Private Physician - When: As needed - Reason: Recheck today's complaints, Re-evaluation by your physician Discharge Instructions: - Discharge Summary Sheet rn - Abdominal Pain, Adult rn - Nausea and Vomiting, Adult rn - Pain Without a Known Cause rn Forms: - Medication Reconciliation Form rn - Thank You Letter rn - Antibiotic financial internship - Prescription Opioid Use rn Prescriptions: - ondansetron 4 mg Oral tablet,disintegrating - take 1 tablet by ORAL route every 8 hours As needed; 20 tablet; Refills: 0, rn Product Selection Permitted Signatures: Dispatcher [employer] Fredo Alvarez RN Lexx Daley MD MD rn Holmes, Maurice, MD MD [facility] Sue Adams RN RN tr6 Corrections: (The following items were deleted from the chart) 07:24 07:22 Reports lower abd pain that began last night, no fever, + rn nausea/vomiting/diarrhea. rn 08:47 08:36 Pelvis Complete+US.RAD.BRZ ordered. EDMS EDMS
[2020-09-15 12:03] VITALS: BP 139/82; TEMP 99; O2SAT 100
== END 2020-09-15 11:53 | disposition home or self-care (01) ==
LOC: ER 06:26
DX: R11.2 Nausea with vomiting, unspecified (principal)
CPT/HCPCS: 36415; 74177; 76830; 80048; 80076; 81003; 81025; 83690; 85025; 87804; 96361; 96374; 96375; 99284; J2405; J7030; Q9967

== ENCOUNTER 2020-10-27 14:45 | Emergency (ER) | payer SELFPAY ==
[2020-10-27 16:39] LABS: Urine Specific Gravity/Preg 1.015 (1.005-1.030)
--- NOTE | 2020-10-27 21:23 | ER ---
Nurse's Notes [facility] Name: Fely Monge Age: 25 yrs Sex: Female : 1995 Arrival Date: 10/27/2020 Time: 15:14 Bed External Waiting Private MD: Diagnosis: Presentation: 10/27 15:34 Chief complaint: Patient states: Pt stated, "My chest is supper tight and went up into kg my neck and made my cheeks tingly." Pt stated it started at 1430. Coronavirus screen: Client denies travel out of the [place] in the last 14 days. At this time, unable to obtain information related to travel outside the [place] At this time, the client does not indicate any symptoms associated with coronavirus-19. Ebola Screen: Patient negative for fever greater than or equal to 101.5 degrees Fahrenheit, and additional compatible Ebola Virus Disease symptoms Patient denies exposure to infectious person. Patient denies travel to an Ebola-affected area in the 21 days before illness onset. Initial Sepsis Screen: Does the patient meet any 2 criteria? No. Patient's initial sepsis screen is negative. Does the patient have a suspected source of infection? No. Patient's initial sepsis screen is negative. Risk Assessment: Do you want to hurt yourself or someone else? Patient reports no desire to harm self or others. Onset of symptoms was October 27, 2020 at 14:30. 15:34 Method Of Arrival: Ambulatory kg 15:34 Acuity: SHEFALI 3 kg Triage Assessment: 15:37 General: Appears in no apparent distress. Behavior is calm, cooperative, appropriate kg for age, quiet. Pain: Complains of pain in xiphoid area and mid-sternal area. Cardiovascular: Reports chest pain, fatigue. FLOUR TESTER: 15:37 LMP N/A - Irregular menses kg Historical: - Allergies: 15:37 No Known Allergies; kg - PMHx: 15:37 Asthma; kg - PSHx: 15:37 None; kg - Immunization history:: Adult Immunizations not up to date, Client reports having NOT received the Covid vaccine. - Social history:: Smoking status: Reported history of juuling and/or vaping. Patient uses alcohol, on a daily basis. Screenin:39 Abuse screen: Denies threats or abuse. Denies injuries from another. Nutritional kg screening: No deficits noted. Tuberculosis screening: No symptoms or risk factors identified. Fall Risk None identified. Assessment: 15:39 Pain: Pain radiates to Back of neck. kg Vital Signs: 15:34 BP 128 / 88; Pulse 99 LA; Resp 18; Temp 98.8(TE); Pulse Ox 100% on R/A; Weight 49.9 kg kg (R); Height 5 ft. 3 in. (160.02 cm); Pain 6/10; 15:34 Body Mass Index 19.49 (49.90 kg, 160.02 cm) kg ED Course: 15:14 Patient arrived in ED. mr 15:37 Triage completed. kg 15:37 Arm band placed on left wrist. kg 15:39 Patient has correct armband on for positive identification. kg 15:39 Patient maintains SpO2 saturation greater than 95% on room air. kg 19:17 Yao De La Rosa NP is PHCP. pm1 19:17 Lexx Loving MD is Attending Physician. pm1 Administered Medications: No medications were administered Outcome: 21:23 Patient left the ED. em Signatures: Ledy Shaw mr Fredo Small, RN RN em Yao De La Rosa NP [employer] WORKER pm1 Meseret Carpenter RN RN kg Corrections: (The following items were deleted from the chart) 16:08 15:34 Acuity: SHEFALI 4 kg kg
[2020-10-27 21:28] VITALS: BP 128/88; TEMP 98.8; O2SAT 100
--- OUTSIDE RECORDS SUMMARY | 2020-10-27 22:46 | XMS REPORT | Continuity of Care Document ---
:1995 Author Organization [facility] t Address [address] [place] [address] Care Team Providers Name Role Phone Noble MCDONALD Attending Clinician Doctor Unassigned, Name Attending Clinician Unavailable Nemesio TATE Attending Clinician Lab, Fam Pob I Attending Clinician Unavailable Problems This patient has no known problems. Allergies, Adverse Reactions, Alerts This patient has no known allergies or adverse reactions. Medications This patient has no known medications. Procedures This patient has no known procedures. Encounters Start End Encounter Admission Attending Care Care Encounter Source Date/Time Date/Time Type Type Clinicians Facility Department ID 2020-09-16 2020-09-16 Emergency Noble [facility] [id number] 13:42:00 16:29:00 Werner [place] [id number] [place] [id number] [place] [id number] 2020-09-16 2020-09-16 Orders Doctor SHARMA [id number] 00:00:00 00:00:00 Only UnassignedTATIANNA [id number] [place] [facility] [id number] 2019-12-30 2019-12-30 Emergency Herr, [facility] [id number] 12:38:00 15:12:00 Anne Elvia [id number] [place] [id number] [place] [id number] 2019-12-30 2019-12-30 Orders Doctor ZACHARY [id number] 00:00:00 00:00:00 Only Unassigned, TATIANNA [id number] [place] [facility] [id number] 2019-09-17 2019-09-17 Laboratory Lab, [facility] [id number] 08:25:13 08:45:13 Only Fam Pob I [facility] [id number] [place] [id number] [facility] [id number] nal [address] 2019-09-17 2019-09-17 Letter Doctor ZACHARY [id number] 00:00:00 00:00:00 (Out) Unassigned, TATIANNA [id number] [place] [facility] [id number] Results This patient has no known results.
--- NOTE | 2020-10-28 07:38 | EKG ---
Test Date: 2020-10-27 Test Time: 15:42:47 [employer]: LUIS MEASUREMENT RESULTS: Intervals: Rate: 107 NM: 124 QRSD: 86 QT: 342 QTc: 456 Lavina: P: 81 NM: 124 QRS: 95 T: 64 INTERPRETIVE STATEMENTS: Sinus tachycardia Rightward axis Pulmonary disease pattern Abnormal ECG No previous ECG available for comparison Electronically Signed On 10-28-20 07:36:20 CDT by Calvin Gaffney
[2020-10-30 14:48] LABS: Urine Blood Negative (Negative); Urine Glucose Negative (Negative); Urine Protein Trace (Negative); Urine Specific Gravity 1.015 (1.005-1.030); Urine pH 8.5 (5.0-7.0)
== END 2020-10-27 21:23 | disposition left against medical advice (07) ==
LOC: ER 14:45
DX: Z53.21 Procedure and treatment not carried out due to patient leaving prior to being seen by health care provider (principal)
CPT/HCPCS: 81003; 81025; 93005; 99283